=== PATIENT | female | born 1960 | race Caucasian/White ===

== ENCOUNTER 2019-12-28 07:25 | Day surgery (SDC) | payer BC ==
[2019-09-12 14:39] LABS: Urine Appearance CLEAR; Urine Bilirubin NEGATIVE (NEG); Urine Blood NEGATIVE (NEG); Urine Color YELLOW; Urine Glucose NEGATIVE (NEG); Urine Protein NEGATIVE (NEG); Urine Urobilinogen 0.2 mg/dL (0.2-1.0); Urine pH 6.5 (5.0-7.0)
[2019-09-12 14:41] LABS: Urine Microscopic Reflex NO UMIC
[2019-09-12 14:42] LABS: Absolute Lymphocytes (CBC) 1.9 K/uL (0.7-4.9); Hematocrit 40.4 % (36.0-45.0); Lymphocytes % 28.8 % (15.3-44.8); MPV 8.5 fL (7.6-11.3); RBC Red Blood Cell Count 4.84 M/uL (3.86-4.86)
[2019-12-25 12:21] LABS: Absolute Lymphocytes (CBC) 1.6 K/uL (0.7-4.9); Basophils % 1.3 % (0-1.3); Hematocrit 39.4 % (36.0-45.0); Lymphocytes % 28.4 % (15.3-44.8); MPV 8.3 fL (7.6-11.3); RBC Red Blood Cell Count 4.74 M/uL (3.86-4.86)
[2019-12-25 12:23] LABS: Urine Appearance CLEAR; Urine Bilirubin NEGATIVE (NEG); Urine Blood NEGATIVE (NEG); Urine Color YELLOW; Urine Glucose NEGATIVE (NEG); Urine Protein NEGATIVE (NEG); Urine Specific Gravity <=1.005 (1.005-1.030); Urine Urobilinogen 0.2 mg/dL (0.2-1.0)
[2019-12-25 12:26] LABS: Protime INR 0.89
[2019-12-25 12:37] LABS: Potassium 3.9 mmol/L (3.5-5.1)
[2019-12-25 13:13] LABS: Urine Microscopic Reflex NO UMIC
--- OUTSIDE RECORDS SUMMARY | 2019-12-28 07:27 | XMS REPORT | Continuity of Care Document ---
:1960 Author Organization MD [facility] Care Team Providers Name Role Phone MD Lingo Unavailable Un available Problems Problem Status Onset Classification Date Comments Sourc e Date Reported Z12.31 - ENCNTR Active 07/21/19 O PID SCREEN MAMMOGRAM [place] FOR [place] Stiffness of 08/03/19 02/16/2019 SMR right wrist, not 19 [place] elsewhere [place] classified RT WRIST SURGERY Active 05/23/20 SMR 11..18 18 [facility] Radial styloid 02/16/2019 S MR tenosynovitis [de [place] Quervain] [place] Stiffness of 02/16/2019 [facility] right hand, not [place] elsewhere [place] classified Pain in right 02/16/2019 SM R wrist [facility] Localized edema 02/16/2019 SMR [facility] Medications No Data Provided for This Section Allergies, Adverse Reactions, Alerts No Known Medication Allergies Immunizations No Data Provided for This Section Results No Data Provided for This Section Pathology Reports No Data Provided for This Section Diagnostic Reports Report Value Date Source Breast Mammo Scrn 07/27/2019 MARIA ISABEL Malik nd YOANDY w damaris incl CAD MA BILATERAL DIGITAL SCREENING MAMMOGRAM 3D/2D WITH CAD: 07/27/2019 CLINICAL: Routine/Z12.31. Current study was evaluated with a Stave Inspector d Detection (CAD) system. COMPARISON:No prior exams were available for [facility] prudencio. TECHNIQUE: Digital Breast To mosynthesis was performed and utilized for Interpretation. Current study was also evaluated with a Computer Aided Detection (CAD) system. FINDINGS: The tissue of both breasts i s heterogeneously dense, which could obscure detection of small masses. No significant masses, calci fications, or other findings are seen in either breast. IMPRESSION: NEGATIVE RECOMMENDATION:There is no m ammographic evidence of malignancy. A 1 year screening mammogram is recommended.(07/27/2020) This exam was interpreted at [id number] for KAREN Lares. Professional services are pr ovided by the [facility] [place] [facility] Division of Diagnostic Imaging. Yris Campbell M.D., ms/penrad:08/07/2019 09:00:45 Blacksmith Supervisor(s): RT Pierre(Becky)(M), [facility] letter sent: BI-RADS 1/2 Dense Mammogram BI-RADS: 1 Negative Consultation Notes No Data Provided for This Section Discharge Summaries No Data Provided for This Section History and Physicals No Data Provided for This Section Vital Signs No Data Provided for This Section Encounters Location Location Encounter Encounter Reason Attending ADM [place] Stat us Source Details Type Number For Provider Date Date Visit [facility] OP Therapy [id number] Eliel 06/30 07/30 [facility] Patients [facility] [place] and [place] [facility] Outpt Diag [id number] [facility] 07/27 07/28 [facility] Out[facility] Kadiyal Pe [facility] Imaging [place] Procedures No Data Provided for This Section Assessment and Plan No Data Provided for This Section Plan of Care No Data Provided for This Section Social History Social History Date Source Social History TypeResponse 07/28/2019 [facility] [place] No data available for this 07/30/2018 [facility] Helena villatoro [place] section Family History No Data Provided for This Section Advance Directives No Data Provided for This Section Functional Status No Data Provided for This Section
--- OUTSIDE RECORDS SUMMARY | 2019-12-28 07:27 | XMS REPORT | Continuity of Care Document ---
:1960 Author Organization [facility] t Address [address] [place] [address] Care Team Providers Name Role Phone Juan Coello Attending Clinician Renuka Escoto Attending Clinician JEVON Attending Clinician Unavailable Payers Payer Name Policy Type Policy Number Effective Date Expiration Date S ource Problems Condition Condition Condition Status Onset Resolution Last Treating Co mments Source Name Details Category Date Date Treatment Clinician Date Z12.31 - Diagnosis Active 2019-07-27 M emoria ENCNTR -24 12:20:00 l SCREEN Z12.31 - 00:01: Vignesh sanchez MAMMOGRAM ENCNTR 00 FOR [place] SCREEN MAMMOGRAM FOR [place] Active 07/21/2019 MARIA ISABEL Clayton RT WRIST Diagnosis Active 2017-062018-06-30 M emoria SURGERY 07-23 11:55:00 l 05.23.18 RT WRIST 08:00: Herm ramila SURGERY 00 05.23.18 Active 05/23/2018 [facility] History of History of Problem Resolve [facility] hay fever hay fever d [facility] [place] [facility] ans Sprain of Sprain of Problem Active Uni vers metacarpop metacarpop it [place] of halangeal [place]al [place] (MCP[place] (MCP) Physici joint of joint of ans right right index index finger, finger, initial initial encounter encounter De De Problem Active Univers Quervain's Quervain's it y of [place] tis, right tis, right Ph ysici ans Radial Problem 2019-02-16 Memor ia styloid 11:41:31 l tenosynovi Radial Herm ramila tis [de styloid Quervain] tenosynovi tis [de Quervain] 02/16/2019 [facility] Stiffness Problem 2019-02-16 Me moria of right 11:41:31 l hand, not [place] elsewhere Stiffness classified of right hand, not elsewhere classified 02/16/2019 [facility] Pain in Problem 2019-02-16 Feliciano binh right 11:41:31 l wrist Pain in [place] right wrist 02/16/2019 [facility] Localized Problem 2019-02-16 Me moria edema 11:41:31 l [place] Localized edema 02/16/2019 [facility] Stiffness Problem 2019-0 2019-02-16 2019-02-16 Memoria of right 2-06 11:41:31 11:41:31 l wrist, not 06:41: Vignesh n elsewhere Stiffness 19 classified of right wrist, not elsewhere classified 08/03/2018 02/16/2019 [facility] Allergies, Adverse Reactions, Alerts Allergy Allergy Status Severity Reaction(s) Onset Inactive Treating Comm ents Source Name Type Date Date Clinician Sulfa DA Active [facility] (Sulfona 8-27 [place] mide 00:00: d Antibiot 00 Medical ics) [facility] Sulfa drug Active [facility] Drugs allergy [facility] [place] [facility] Family History Family Member Diagnosis Comments Start Date Stop Date Source Mother Family history of [facility] [place] malignant neoplasm Physic ians Father Family history of [facility] [place] malignant neoplasm Physic ians Social History Social Habit Start Date Stop Date Quantity Comments Source Social History 2018-07-30 2018-07-30 [facility] 05:59:00 05:59:00 Medications Ordered Filled Start Stop Current Ordering Indication Dosage Frequency Signature Comments Components Source Medication Medication Date Date Medication? Clinician (SIG) Name Name Ondansetron Ondansetron 2017-06 Yes ARLEEN 1 Q12H TAKE 1 Univers HCl - 8 MG HCl - 8 MG 1-21 MANSOUR TABLET ity of Oral Tablet Oral Tablet 00:00: M.D. Every [place] 00 twelve Physici hours ans Colace 100 Colace 100 2017-06 Yes ARLEEN Q0.3333D TAKE 1 Univers MG Oral MG Oral 1-21 MANSOUR CAPSULE 3 i ty of Capsule Capsule 00:00: M.D. TIMES [place] 00 DAILY. Physici ans Meloxicam Meloxicam 2018-0 Yes ARLEEN 1 QD TAKE 1 Univers 15 MG Oral 15 MG Oral 1-23 MANSOUR TABLET ity of Tablet Tablet 00:00: M.D. DAILY [place] 00 Physici ans Omeprazole Omeprazole 2018-0 Yes ARLEEN 1 QD TAKE 1 Univers 40 MG Oral 40 MG Oral 1-23 MANSOUR CAPSULE ity of Capsule Capsule 00:00: M.D. DAILY [place] Delayed Delayed 00 Physici Release Release ans Procedures Procedure Date / Time Performing Clinician Source Performed History of [facility] Hemorrhoidectomy stapled Physici ans Encounters Start End Encounter Admission Attending Care Care Encounter Source Date/Time Date/Time Type Type Clinicians Facility Department ID 2019-07-27 2019-07-27 Outpatient JACQUELYN Coello [facility] [id number] 12:08:00 23:59:00 Marilyn Lia Martinez 2018-06-30 2018-07-29 Outpatient Jevon, [id number]. [id number] 08:00:00 23:59:00 Arleen [id number] [place] [id number] 2018-06-30 2018-07-29 Outpatient Jevon, 2.16.840. [id number]. [id number] 08:00:00 23:59:00 Arleen [id number] [place] [id number] 2018-07-28 2018-07-28 STEVE Leonardo UTP [id number] Univers 09:30:00 09:30:00 t; Aston BACON M.D. [place], Physici M.D. ans 2018-06-23 2018-06-23 STEVE Leonardo [id number] Univers 08:00:00 08:00:00 t; Aston BACON M.D. [place] Osbaldo BACON M.D. ans 2018-06-07 2018-06-07 STEVE Leonardo UTP [id number] Univers 09:30:00 09:30:00 t; Aston BACON M.D. [place], Physici M.D. ans 2018-06-02 2018-06-02 STEVE Leonardo [facility] [id number] Univers 11:45:00 11:45:00 t; Aston BACON M.D. [place], Physici M.D. ans 2018-05-23 2018-05-23 STEVE Leonardo [facility] [id number] Univers 09:00:00 09:00:00 t; siena [facility] Kalyn Clancy Physici M.D. ans 2018-04-26 2018[id number] Univers 08:45:00 08:45:00 t; Aston BACON M.D. [place], Physici M.D. ans 2018-02-03 2018-02-03 [facility] STEVE ESCOTO [facility] [id number] Univers 08:30:00 08:30:00 t; Aston BACON M.D. [place], Physici M.D. ans 2017-07-20 2017-07-20 STEVE Leonardo [facility] [id number] Univers 09:45:00 09:45:00 t; siena [facility] Kalyn Clancy Physici M.D. ans 2017-03-09 2017-03-09 STEVE Leonardo [id number] Univers 10:45:00 10:45:00 t; Aston BACON M.D. [place], Physici M.D. [facility] Results This patient has no known results.
[2019-12-28] MEDS ORDERED: FENTANYL CITR 250 MCG/5 ML ONE (07:34)
[2019-12-28] MEDS ORDERED: MIDAZOLAM HCL 2 MG/2 ML INJ ONE (07:34)
[2019-12-28] MEDS ORDERED: LIDOCAINE 2% MPF 5 ML VIAL ONE (07:34)
[2019-12-28] MEDS ORDERED: ONDANSETRON 4 MG/2 ML VIAL ONE (07:34)
[2019-12-28] MEDS ORDERED: propofoL 200 MG/20 ML VIAL IV ONE (07:34)
[2019-12-28] MEDS ORDERED: dexAMETHasone 10 MG/ML VIAL ONE (07:34)
[2019-12-28] MEDS ORDERED: ROCURONIUM 50 MG/5 ML VIAL IV ONE (07:34)
[2019-12-28] MEDS ORDERED: Ringers Lactate 1,000 ML IV ONE ×3 (07:38→09:09)
[2019-12-28] MEDS ORDERED: NA CHLORIDE 0.9% 1,000 ML ONE (07:44)
[2019-12-28] MEDS ORDERED: SCOPOLAMINE HYDROBROMIDE PATCH TD ONE (07:44)
[2019-12-28] MEDS ORDERED: CEFAZOLIN/SWI 2gm 2 GM/20 ML SYR ONE (07:44)
[2019-12-28] MEDS ORDERED: NA CHLORIDE 0.9% 100 ML IV ONE (07:49)
[2019-12-28] MEDS: BUPIVACAINE 0.25% PF 30 ML VIAL ONE ×2 (08:49→09:15)
[2019-12-28] MEDS: VASOPRESSIN 20 UNIT/ML VIAL ONE ×2 (10:32→12:33)
[2019-12-28] MEDS ORDERED: CEFAZOLIN SODIUM 1 GM/VIAL ONE (12:14)
[2019-12-28] MEDS ORDERED: KETOROLAC 30 MG/ML INJ ONE (13:44)
[2019-12-28] MEDS ORDERED: MORPHINE 10 MG/ML VIAL ONE (13:55)
[2019-12-28] MEDS ORDERED: HYDROCODONE/APAP 5/325 MG TAB PO ONE (15:05)
[2019-12-28] MEDS ORDERED: HYDROCODONE/APAP 5/325 MG TAB ONE (15:09)
[2019-12-28 16:00] VITALS: BP 132/55; TEMP 96.9; O2SAT 99
--- NOTE | 2020-01-27 08:19 | OP ---
Date of Procedure: 12/28/2019 Surgeon: Marilyn Coello MD Slot Router: Carmen Crews. Preoperative Diagnoses: Recurrent postmenopausal bleeding, uterovaginal prolapse stage I, stage II p osterior wall defect and posterior enterocele. Postoperative Diagnoses: Recurrent postmenopausal bleeding, uterovaginal prolapse stage I, stage II posterior wall defect, posterior enterocele, extensive endometriosis, cul-de-sac obliteration. Procedures Performed: 1.Total laparoscopic hysterectomy, bilateral salpingo-oophorectomy. 2.Extensive rectosigmoid, lysis of adhesions, and endometriosis excision. 3.Uterosacral ligament suspension, colpopexy distal with cystoscopy. 4.Vaginal posterior wall repair (rectocele repair, posterior enterocele repair, and perineorrhaphy). Anesthesia: General endotracheal. Estimated Blood Loss: 100 mL. Santana Output: 215. The patient received 2 doses of Ancef and the procedure lasted more than 3 hours. Specimens: Uterus, bilateral tubes and ovaries, pelvic washings, nodule from the left pararectal spa ce. Findings: Cul-de-sac obliteration was noted. Dr. Braun intraoperative consult was obtained to give advice with the extent of dissection and once this was done, he dictated a note. No evidence of any ovarian tubal pathology was noted on this laparoscopy. Indications For Procedure: The patient is a 59-year-old with recurrent postmenopausal bleeding, endo metrial sampling negative for atypia or malignancy. However, due to the recurrence of bleeding, we d iscussed all the different options including observation with a repeat ultrasound, imaging and period ic intervals or just monitoring symptoms with the recurrent symptom, then proceed with hysterectomy. After discussing these options, the patient contemplated the benefits and risks of each option and p referred to proceed with a laparoscopic hysterectomy at this time. So, she was consented for this. She also has significant posterior wall defect, which was visible at the time of the exam and once th is was mentioned to the patient, she did explain how she has bulge symptoms. Also, has occasional st ress urinary incontinence, but very insignificant, mostly she does experience some pelvic pain and cr amps when she has bleeding. Her procedure was postponed due to the COVID-19 crisis and she was sari eduled. After consenting her for hysterectomy, possible uterosacral suspension at the apex as needed and then posterior repair, perineocele repair as well as enterocele repair as needed. She was consented and brought to the OR. Description Of Procedure: After informed consent was verified, she was taken back to OR, 2 g of Ance f were given. The patient placed in dorsal lithotomy position. Abdomen, vulva, vagina, and perineum prepped and draped in a sterile fashion. Santana placed to drain the bladder. Speculum placed to exp ose the cervix. A large VCare introduced into the uterine cavity and fixed in place, this area drape d. Santana was connected for retrograde filling. A 1 cm infraumbilical incision made with a scalpel using open laparoscopy technique. Fascia incised, tagged with 0 Vicryl sutures, peritoneum entered bluntly. S-retractors were placed, Lexi introduc ed. Insufflation done, site of entry was checked, unremarkable. A 10 mm suprapubic, and 5 mm left a nd right lower quadrant incisions were made. Then, the bowel was retracted, needed to be sutured wit h a 3-0 Monocryl on the epiploicae and through the left upper quadrant incision Rina needl e was introduced and retraction was done from here. On visualization of both the adnexa, there was significant cul-de-sac obliteration. The right ovary was significantly adhered to the lateral wall. The round ligament was covered with endometriosis in the lateral most aspect just immediately medial to the internal ring. The tube and ovary on the left side were also to the posterior broad ligament. I had to take the bowel adhesions down i n order for me to see the infundibulopelvic ligament on the left pelvic brim and on the right pelvic brim the ureter was visualized without any problems however. Past the ovary where the adhesions were of the utero-ovarian ligament and the ovary to the posterior broad ligament as well the right latera l wall. After inspecting this, it was quite obvious that this had to be released in order for me to see the ureter inferiorly and protected while performing hysterectomy. So, went ahead and placed a r ight lower quadrant 5 port as well. Then, the LigaSure was taken and the ovarian adhesions on the le ft side were first taken down. The tube was released after the adhesions were taken down and the ent otoniel tube including the implant in the left lateral round ligament were all excised and then the infun dibulopelvic ligament was taken down, Mesosalpinx, round ligament taken down and then broad ligament opened up anteriorly to create a bladder flap posteriorly to go to the uterosacral on the left side. Then, once the position was nicely opened up, the rest of the broad ligament was taken down with the help of the LigaSure. Vessels were skeletonized. Then, on the right side went on to perform a robert lar dissection. There were extensive adhesions to the posterior wall of the uterus, bowel to the lat eral wall on the side in the distal part of the pelvic cavity and then the cul-de-sac was completely obliterated. No evidence of any pararectal space, likely from endometriosis. So, endometriosis care fully excised, made the left pararectal space incision on the peritoneum. Pararectal space was disse cted till the rectum was visualized and the posterior vaginal wall and a healthy distal part was visu alized. Then, went onto the right side and cul-de-sac was obliterated as here as well. After Dr. Alfred clement was in the room, the right pararectal space was opened up by bluntly dissecting the tip of Alexa n on the peritoneum of the pararectal space. Once this was opened up, the bowel was dissected medial ly and the adhesions to the posterior vaginal wall up to the level of the colpotomy cup. These were taken down sharply with scissors as well as the LigaSure and carefully the entire rectum was dropped down, freeing up the posterior vaginal wall. The distal part of the wall that was in the cul-de-sac was not adhered to anything and this is the retroperitoneal space, so no other problems were noted. After the bowel was entirely dropped down and the left side was cleared up, the attention was directe d to the right side. The ureter was dissected from the pelvic ring to the level where the ovary was attached, then the ovary was picked up and dissected gradually from its attachment posteriorly to the lateral wall. Once this was done, opened up between the ovary and the round ligament. Then, a wind ow was created between the ovary and the ureter. This was incised. Then, the ovarian attachment was taken down with the help of the LigaSure and freed up. Once this was done, utero-ovarian ligament t aken down. The round ligament was taken down. The tube was removed and anterior broad ligament open ed up to connect to the bladder flap. The vessels were skeletonized. The posterior peritoneum was t aken to the cuff level and then anteriorly the bladder was cleaned up, vaginal wall was exposed. Aft er the vessels were taken down on each side with the bipolar basket tip as well as the LigaSure. The n, the vessels were cut, cardinal ligaments were taken down. Circumferential colpotomy with a monopo lar hook blade after the left side were also taken down in the similar fashion without any problems. Once this was done, 0 PDS suture was used to close the angle with simple sutures. The specimen was retrieved through the vagina. The ovary on the left side was taken down from the infundibulopelvic l igament and both sides was taken at the level of the infundibulopelvic ligament, handed out for perma nent pathology. The pedicles were checked and there was excellent hemostasis. The ureters were chec ked and there was excellent peristalsis. Once I was able to close the vaginal cuff with the help of the 0 PDS and 3 [id number] in the center and 2 simple sutures on the angles. Then, the distal u terosacral was picked up with the help of the 0 PDS and attached to the posterior and anterior vagina l hernandez entering the connective tissue for support. A good uterosacral suspension was performed here , although it was distal. On vaginal exam, the anterior compartment defect was completely unremarkab le and 23, -6. Cystoscopy was performed with a 17[place] sheath, 30 degree lens, normal saline. No evidence of any ureteric obstruction. Strong jets of urine from both. No evidence of any bladder trauma. The Santana was replaced, came back up laparoscopic after changing gloves. The trocars were removed under direc t vision. The were released as well as the trocars were removed. There was excellent hem ostasis. Fascia incision at the umbilicus was closed with the tag 0 Vicryl sutures tied to each othe r and the suprapubic area with simple 0 Vicryl stitch followed by interrupted 4-0 Vicryl for skin sam sure. After going down vaginally, the area of the vaginal lining was marked out in a magaly-shaped with a distal defect was seen. There was also significant posterior enterocele, injected with dilute vasopr essin in the perineal body at the vestibule and the posterior vaginal wall in the lower one-half. A magaly-shaped incision was made in the lower 1/3 on the vaginal epithelium and sub epithelium were s craped off the midline lower posterior wall and then the defect was visualized. The defect appeared to be global with the presence of the enterocele, definitely need a reduction. So, the enterocele an d the rectocele were dissected away from the epithelial layer and 2-0 PDS was used to round the defec t in a continuous running fashion until the perineal body was reconstructed with a 2-0 Vicryl suture. Then, the posterior enterocele was taken care with purse-string sutures x2, 3-0 Vicryl. Then, the vaginal epithelium was excised, was just trimmed to have good apposition closed in a continuous runni ng horizontal mattress fashion. The 2-0 Vicryl sutures. Excellent apposition of both per ineal body was found. The vaginal epithelial closure 2-0 Vicryl in a continuous running fashion on t he top and 0 Vicryl in the bottom. Instrument, needle, and sponge counts were done and were correct at the end of the case. Vaginal packing was placed. Santana was left in place. EBL was 100. The pat ient was recovered from anesthesia and taken to PACU in stable condition. INGRID/JANA Voice ID: [id number] Report ID: [id number]
== END 2019-12-28 15:45 | disposition home or self-care (01) ==
LOC: OR 07:25
PROVIDERS: ATTEND Obstetrics & Gynecology
PROC: 0UT94ZZ Resection of Uterus, Percutaneous Endoscopic Approach (ICD-10-PCS; 2019-12-28)
PROC: 0UT24ZZ Resection of Bilateral Ovaries, Percutaneous Endoscopic Approach (ICD-10-PCS; 2019-12-28)
PROC: 0UT74ZZ Resection of Bilateral Fallopian Tubes, Percutaneous Endoscopic Approach (ICD-10-PCS; 2019-12-28)
PROC: 0UB44ZZ Excision of Uterine Supporting Structure, Percutaneous Endoscopic Approach (ICD-10-PCS; 2019-12-28)
PROC: 0JQC0ZZ Repair Pelvic Region Subcutaneous Tissue and Fascia, Open Approach (ICD-10-PCS; 2019-12-28)
PROC: 0KQM3ZZ Repair Perineum Muscle, Percutaneous Approach (ICD-10-PCS; 2019-12-28)
PROC: 0USG4ZZ Reposition Vagina, Percutaneous Endoscopic Approach (ICD-10-PCS; principal; 2019-12-28 08:30)
DX: N81.2 Incomplete uterovaginal prolapse (principal); N95.0 Postmenopausal bleeding; N80.3 Endometriosis of pelvic peritoneum; N80.0 Endometriosis of uterus; N39.3 Stress incontinence (female) (male); N88.8 Other specified noninflammatory disorders of cervix uteri; N73.6 Female pelvic peritoneal adhesions (postinfective); E10.9 Type 1 diabetes mellitus without complications; F32.81 Premenstrual dysphoric disorder; Z79.84 Long term (current) use of oral hypoglycemic drugs; Z79.82 Long term (current) use of aspirin; Z79.899 Other long term (current) drug therapy
CPT/HCPCS: 85025 ×2; 80048; 36415 ×2; 86900; 88108; 86850; 85610; 86901; 82947 ×2; 88305 ×2; 85730; 81003 ×2; 57425; 58571; 58662; 57285; 57250; J2704; J2250; J3010; J1100; J0690 ×2; J7120 ×3; J7030; J2405; 88307